=== PATIENT | male | born 1985 | race Caucasian/White ===

== ENCOUNTER 2021-03-28 09:28 | Emergency (ER) | payer OTHER ==
[2021-03-28] MEDS ORDERED: IBUPROFEN600 MG PO (12:45)
== END 2021-03-28 14:50 | disposition home or self-care (01) ==
LOC: ER1 09:28
DX: S50.02XA Contusion of left elbow, initial encounter (principal); V18.2XXA Unspecified pedal cyclist injured in noncollision transport accident in nontraffic accident, initial encounter; Y92.410 Unspecified street and highway as the place of occurrence of the external cause
CPT/HCPCS: 29105; 73080; 73090; 99283